=== PATIENT | female | born 1955 | race Caucasian/White ===

== ENCOUNTER → 2017-03-17 | Outpatient (CLI) | payer BC ==
--- NOTE | ~2017-03-17 | CR212 ---
[facility]. [facility] A Service of [facility] & [facility] RADIOLOGY TEXT RESULTS PATIENT: HERNANDO SAM LESVIA LOCATION: [facility] : 55 UNIT #: [id number] AGE: [address]: Lauri Read MD SEX: F ORDER DR: [id number] [place] [id number] O MR#: [id number] Acc #: [id number] NAME: HERNANDO SAM : 1955 SEX: F STUDY DATE/TIME: 03/17/2017 11:16 UNIT: [facility] ROOM: STUDY DESCRIPTION: CR Ribs Unilateral 2 View Lt Attending Physician: Lauri Read Jr., M.D. Referring Physician: Lauri Read Jr., M.D. Ordering Physician: Lauri Read Jr., M.D. Primary Care Physician: Aleisha Rosales M.D. MEDICAL IMAGING REPORT This report is preliminary unless electronic signature is present. EXAM Left rib series, 03/17/2017 HISTORY 62-year-old woman, sharp pain in the left lateral chest wall costophrenic level pain with stretching and cough, sneezing were turning COMPARISON None FINDINGS There are 3 recorded views of the left ribs. Cortex is intact throughout with no rib fracture. Mineralization is preserved. Left lung is expanded and clear. Left costophrenic angle preserved. IMPRESSION Negative left rib series. Costochondritis cannot be excluded. Correlate further clinically. Left lung and costophrenic angle appear normal. Dictated by... Casa Hein M.D. THIS IS AN ELECTRONICALLY VERIFIED REPORT Casa Hein M.D. at 03/17/2017 3:30 PM Tian TD: 03/17/2017 14:54 JOB #: [id number] MEDICAL IMAGING REPORT Page 1 of 1
== END | disposition home or self-care (01) ==
LOC: SRAD 10:56
DX: R10.32 Left lower quadrant pain (principal)
CPT/HCPCS: 71100